=== PATIENT | female | born 1970 | race Hispanic/Latino ===

== ENCOUNTER 2020-07-26 06:37 | Emergency (ER) | payer BC ==
[2020-07-26 07:16] LABS: Absolute Lymphocytes (CBC) 1.8 K/uL (0.7-4.9); Basophils % 0.2 % (0-1.3); Hematocrit 37.6 % (36.0-45.0); Lymphocytes % 20.3 % (15.3-44.8); MPV 10.6 fL (7.6-11.3); RBC Red Blood Cell Count 4.06 M/uL (3.86-4.86)
[2020-07-26 07:23] LABS: BUN Blood Urea Nitrogen 13 mg/dL (7-18); Bicarbonate 29 mmol/L (21-32); Glucose Level 107 mg/dL (74-106); Magnesium 2.1 mg/dL (1.8-2.4); Potassium 3.9 mmol/L (3.5-5.1); Sodium Level 142 mmol/L (136-145); Troponin (Emerg Dept Use Only) < 0.02 ng/mL (0.0-0.045)
--- NOTE | 2020-07-26 07:24 | RAD REPORT ---
EXAM DESCRIPTION: [place] Single View07/26/2020 7:09 am CLINICAL HISTORY: Syncope COMPARISON: 2016 FINDINGS: The lungs appear clear of acute infiltrate. The heart is probably borderline enlarged IMPRESSION: No acute abnormalities displayed
--- NOTE | 2020-07-26 08:16 | ER ---
Nurse's Notes [facility] Name: Berta Raman Age: 49 yrs Sex: Female : 1970 Arrival Date: 07/26/2020 Time: 06:42 Bed 5 Private MD: Diagnosis: Hyperventilation;Muscle spasm Presentation: 07/26 06:46 Chief complaint: EMS states: Pt reports having a syncopal episode while brushing he ea teeth. EMS reports she was clammy, cold and diaphoretic. BGL 128, 20G LAC initiated by EMS. 324mg ASA given per EMS. Coronavirus screen: At this time, the client does not indicate any symptoms associated with coronavirus-19. Ebola Screen: No symptoms or risks identified at this time. Initial Sepsis Screen: Does the patient meet any 2 criteria? No. Patient's initial sepsis screen is negative. Does the patient have a suspected source of infection? No. Patient's initial sepsis screen is negative. Risk Assessment: Do you want to hurt yourself or someone else? Patient reports no desire to harm self or others. Onset of symptoms was July 26, 2020. 06:46 Method Of Arrival: EMS: [facility] ea 06:46 Acuity: ILIA 3 ea Historical: - Allergies: 06:53 No Known Allergies; ea - Home Meds: 06:53 phentermine oral oral [Active]; ea - PSHx: 06:53 Cholecystectomy; Tubal ligation; TUMOR REMOVAL; ea - Immunization history:: Adult Immunizations up to date. - Social history:: Smoking status: Patient denies any tobacco usage or history of. - Family history:: not pertinent. - Hospitalizations: : No recent hospitalization is reported. Screenin:51 Abuse screen: Denies threats or abuse. Nutritional screening: No deficits noted. ea Tuberculosis screening: No symptoms or risk factors identified. Fall Risk None identified. Assessment: 06:54 General: Appears in no apparent distress. Behavior is calm, cooperative, appropriate ea for age. Pain: Denies pain. Neuro: Level of Consciousness is awake, alert, obeys commands, Oriented to person, place, time. Cardiovascular: Patient's skin is warm and dry. Respiratory: Airway is patent Respiratory effort is even, unlabored. Derm: Skin is pink, warm \T\ dry. 08:12 Reassessment: Patient appears in no apparent distress at this time. Patient and/or em family updated on plan of care and expected duration. Pain level reassessed. Patient is alert, oriented x 3, equal unlabored respirations, skin warm/dry/pink. Vital Signs: 06:46 BP 125 / 91; Pulse 63; Resp 18; Temp 97.3; Pulse Ox 98% ; Weight 70.31 kg; Height 5 ft. ea 1 in. (154.94 cm); 06:46 Body Mass Index 29.29 (70.31 kg, 154.94 cm) ea ED Course: 06:42 Patient arrived in ED. mw2 06:49 José Antonio Sandoval MD is Attending Physician. rn 06:51 Triage completed. ea 06:52 Maintain EMS IV. Dressing intact. Good blood return noted. Site clean \T\ dry. Gauge \T\ ea site: 20G LAC. 06:52 Arm band placed on right wrist. Patient placed in an exam room, on a stretcher, on ea dropper tank storage, on pulse oximetry. 06:52 Patient has correct armband on for positive identification. Bed in low position. Call ea light in reach. retention specialist on. Pulse ox on. NIBP on. 07:09 XRAY Chest (1 view) In Process Unspecified. EDMS 07:10 Silas Schaffer, RN is Primary Nurse. em 07:59 Attending Physician role handed off by José Antonio Sandoval MD kdr 07:59 Riley Chopra MD is Attending Physician. kdr 08:56 No provider procedures requiring assistance completed. IV discontinued, intact, em bleeding controlled, No redness/swelling at site. Pressure dressing applied. Administered Medications: No medications were administered Outcome: 08:16 Discharge ordered by . kdr 08:56 Discharged to home ambulatory. em 08:56 Condition: stable 08:56 Discharge instructions given to patient, Instructed on discharge instructions, follow up and referral plans. Demonstrated understanding of instructions, follow-up care. 08:57 Patient left the ED. em Signatures: Dispatcher [employer] EDMS Riley Chopra MD MD [facility] Silas Schaffer, RN RN José Antonio aSndoval MD MD rn Antunez, Elena, RN RN Teetee Scott mw2
--- NOTE | 2020-07-26 08:16 | EDPHYS ---
Physician Documentation [facility] Name: Berta Raman Age: 49 yrs Sex: Female : 1970 Arrival Date: 07/26/2020 Time: 06:42 Bed 5 Private MD: ED Physician Riley Chopra HPI: 07/26 06:51 This 49 yrs old Female presents to ER via EMS with complaints of near syncope. rn 06:51 The patient has experienced near-syncope. Onset: The symptoms/episode began/occurred rn just prior to arrival. Duration: This was a single episode. Context: occurred while the patient was arguing. Associated injury: The patient did not suffer any apparent associated injury. Current symptoms: Currently, the patient is not experiencing any symptoms. The patient has not experienced similar symptoms in the past. The patient has not recently seen a physician. Reports under a lot of stress lately, was arguing with daughter this AM, felt lightheaded, tingling in hands and face, hands started to cramp, then "slowly went to floor". Doesn't think completely passed out. No preceding chest pain or sob. Has not felt ill lately. No cardiac or chronic lung problems. . Historical: - Allergies: 06:53 No Known Allergies; ea - Home Meds: 06:53 phentermine oral oral [Active]; ea - PSHx: 06:53 Cholecystectomy; Tubal ligation; TUMOR REMOVAL; ea - Immunization history:: Adult Immunizations up to date. - Social history:: Smoking status: Patient denies any tobacco usage or history of. - Family history:: not pertinent. - Hospitalizations: : No recent hospitalization is reported. ROS: 06:51 Constitutional: Negative for fever, chills, and weight loss, Eyes: Negative for injury, rn pain, redness, and discharge, Neck: Negative for injury, pain, and swelling, Cardiovascular: Negative for chest pain, and edema, Respiratory: Negative for shortness of breath, cough, wheezing, and pleuritic chest pain, Abdomen/GI: Negative for abdominal pain, nausea, vomiting, diarrhea, and constipation, Back: Negative for injury and pain, : Negative for injury, bleeding, discharge, and swelling, MS/Extremity: Negative for injury and deformity, Skin: Negative for injury, rash, and discoloration, Neuro: Negative for headache, weakness, and seizure. Exam: 06:51 Constitutional: This is a well developed, well nourished patient who is awake, alert, rn and in no acute distress. Head/Face: Normocephalic, atraumatic. Eyes: Pupils equal round and reactive to light, extra-ocular motions intact. Periorbital areas with no swelling, redness, or edema. ENT: MMM Cardiovascular: Regular rate and rhythm. No pulse deficits. Respiratory: No increased work of breathing, no retractions or nasal flaring. Abdomen/GI: soft, non-tender Skin: Warm, dry with normal turgor. Normal color with no rashes, no lesions, and no evidence of cellulitis. MS/ Extremity: Pulses equal, no cyanosis. Neuro: Awake and alert, GCS 15, oriented to person, place, time, and situation. Cranial nerves II-XII grossly intact. Motor strength 5/5 in all extremities. Sensory grossly intact. Cerebellar exam normal. 08:17 ECG was reviewed by the Attending Physician. kdr Vital Signs: 06:46 BP 125 / 91; Pulse 63; Resp 18; Temp 97.3; Pulse Ox 98% ; Weight 70.31 kg; Height 5 ft. ea 1 in. (154.94 cm); 06:46 Body Mass Index 29.29 (70.31 kg, 154.94 cm) ea MDM: 06:49 Patient medically screened. rn 08:18 Data reviewed: vital signs, nurses notes, lab test result(s), EKG, radiologic studies. kdr Counseling: I had a detailed discussion with the patient and/or guardian regarding: the historical points, exam findings, and any diagnostic results supporting the discharge/admit diagnosis, lab results, radiology results, the need for outpatient follow up. 07/26 06:51 Order name: Basic Metabolic Panel; Complete Time: 07:59 rn 07/26 06:51 Order name: CBC with Diff; Complete Time: 07:59 rn 07/26 06:51 Order name: Magnesium; Complete Time: 07:59 rn 07/26 06:51 Order name: Troponin (emerg Dept Use Only); Complete Time: 07:59 rn 07/26 06:51 Order name: EKG; Complete Time: 06:53 rn 07/26 06:51 Order name: XRAY Chest (1 view); Complete Time: 07:59 rn 07/26 06:51 Order name: Cardiac monitoring; Complete Time: 06:58 rn 07/26 06:51 Order name: EKG - Nurse/Tech; Complete Time: :58 rn 07/26 06:51 Order name: IV Saline Lock; Complete Time: :58 rn 07/26 06:51 Order name: Labs collected and sent; Complete Time: :58 rn 07/26 06:51 Order name: O2 Per Protocol; Complete Time: : rn 07/26 06:51 Order name: O2 Sat Monitoring; Complete Time: : rn EC:17 Rate is 64 beats/min. Rhythm is regular, Normal Sinus Rhythm with No ectopy. QRS Arbela kdr is Normal. RI interval is normal. QRS interval is normal. QT interval is normal. Clinical impression: Normal ECG. Administered Medications: No medications were administered Disposition: 07/26/20 08:16 Discharged to Home. Impression: Hyperventilation, Muscle spasm. - Condition is Stable. - Discharge Instructions: Hyperventilation, Muscle Cramps and Spasms, [id number]. - Medication Reconciliation Form, Thank You Letter form. - Follow up: Private Physician; When: 2 - 3 days; Reason: If symptoms return, Further diagnostic work-up, Recheck today's complaints, Continuance of care, Re-evaluation by your physician. - Problem is new. - Symptoms are resolved. Signatures: Dispatcher [employer] Riley Bajwa MD MD kdr Munoz, Edgar RN José Antonio Galo MD MD rn Antunez, Elena, RN RN ea Corrections: (The following items were deleted from the chart) 08:57 08:16 07/26/2020 08:16 Discharged to Home. Impression: Hyperventilation; Muscle spasm. em Condition is Stable. Forms are Medication Reconciliation Form, Thank You Letter, Antibiotic Education, Prescription Opioid Use. Follow up: Private Physician; When: 2 - 3 days; Reason: If symptoms return, Further diagnostic work-up, Recheck today's complaints, Continuance of care, Re-evaluation by your physician. Problem is new. Symptoms are resolved. kdr
[2020-07-26 09:01] VITALS: BP 125/91; TEMP 97.3; O2SAT 98
== END 2020-07-26 08:57 | disposition home or self-care (01) ==
LOC: ER 06:37
DX: R06.4 Hyperventilation (principal); M62.838 Other muscle spasm
CPT/HCPCS: 36415; 71045; 80048; 83735; 84484; 85025; 93005; 99284

== ENCOUNTER 2022-10-02 09:26 | Emergency (ER) | payer BC, OTHER ==
--- OUTSIDE RECORDS SUMMARY | 2022-10-02 09:30 | XMS REPORT | Continuity of Care Document ---
:1970 Author Organization [facility] t Address [address] [place] [address] [address] [place] [address] Care Team Providers Name Role Phone PCP, PATIENT DOES NOT HAVE A Primary Care Physician Unavaila WIN Burrows Attending Clinician Unavailable WIN PRINCE Attending Clinician Unavailable DORA CHA Attending Clinician Unavailable Dora Cha MD Attending Clinician Doctor Unassigned, [place] Attending Clinician Unavailable Payers Payer Name Policy Type Policy Number Effective Date Expiration Date S ource TSHBP 90 DEGREES [id number] 2021 00:00:00 Problems This patient has no known problems. Allergies, Adverse Reactions, Alerts Allergy Allergy Status Severity Reaction(s) Onset Inactive Treating Comm ents Source Name Type Date Date Clinician NO KNOWN Drug Active Univers ALLERGIE Class ity of S [facility] Social History Social Habit Start Date Stop Date Quantity Comments Source Tobacco use and 2022-09-13 2022-09-13 Smokeless tobacco Un iversity of exposure 00:00:00 00:00:00 non-user [facility] Alcohol intake 2022-09-13 2022-09-13 Lifetime University of 00:00:00 00:00:00 non-drinker [facility] [place] Sex Ass[birth year] At [birth year] Universit y of 00:00:00 00:00:00 [facility] Smoking Status Start Date Stop Date Source [facility] Never [facility] tobacco [facility] Medications This patient has no known medications. Immunizations Ordered Filled Immunization Date Status Comments Sourc e Immunization Name Name SARS-COV-2 COVID-19 2020-07-06 Completed Unive rsity of PFIZER VACCINE 00:00:00 [facility] SARS-COV-2 COVID-19 2020-07-06 Completed Unive rsity of PFIZER VACCINE 00:00:00 [facility] SARS-COV-2 COVID-19 2020-07-06 Completed Unive rsity of PFIZER VACCINE 00:00:00 [facility] SARS-COV-2 COVID-19 2020-06-15 Completed Unive rsity of PFIZER VACCINE 00:00:00 [facility] SARS-COV-2 COVID-19 2020-06-15 Completed Unive rsity of PFIZER VACCINE 00:00:00 [facility] SARS-COV-2 COVID-19 2020-06-15 Completed Unive rsity of PFIZER VACCINE 00:00:00 [facility] Vital Signs Vital Name Observation Time Observation Value Comments Source Systolic blood 2022-09-13 13:21:00 130 mm[Hg] Univer sity [facility] Diastolic blood 2022-09-13 13:21:00 79 mm[Hg] Unive rsity of [facility] Heart rate 2022-09-13 13:21:00 54 /min [facility] Body height 2022-09-13 13:21:00 154.9 cm [facility] Body weight 2022-09-13 13:21:00 77.52 kg [facility] BMI 2022-09-13 13:21:00 32.29 kg/m2 [facility] Procedures Procedure Date / Time Performed Performing Clinician Sourc e ASSIGNMENT OF BENEFITS 2022-09-13 12:59:03 Doctor Unassigned, No [facility] POCT URINALYSIS W/O 2022-09-13 00:00:00 [facility] Encounters Start End Encounter Admission Attending Care Care Encounter Source Date/Time Date/Time Type Type Clinicians Facility Department ID 2023-09-19 2023-09-19 [address] PRINCE [facility] [id number] [facility] 15:30:00 15:30:00 WIN PRINCE ity of [facility] 2022-09-13 2022-09-13 Outpatient R DORA CHA [facility] [id number] Univers 08:00:00 08:46:20 ity of [facility] 2022-09-13 2022-09-13 Office Win Prince [facility] TONI [id number] Univers 08:00:00 08:46:20 Visit ChaDora Pillo FAM [id number] ity of WOMENS [id number] [facility] [id number] [facility] 134 Branch 2022-09-13 2022-09-13 Orders Doctor TRACY [id number] Univers 00:00:00 00:00:00 Only Unassigned, FANNIE [id number] ity of [place] [facility] [id number] Santy [id number] [facility] 009 Branch Results Test Description Test Time Test Comments Results Result Comments Source POCT URINALYSIS W/O SPECIFIC GRAVITY 2022-09-13 13:25:00 Test Item Value Reference Range Interpretation Comme nts POCT PH U (test code = 3254) 6 mg/dl 5-8 POCT U LEUK EST (test code = 3263) Negative Negative - Negative POCT U NIT (test code = 3262) negative Negative - Negative POCT U PROT (test code = 3259) Negative Negative - Negative POCT U GLU (test code = 3256) Normal Negative - Negative POCT U KETONE (test code = 3258) Negative Negative - Negative POCT U BLD (test code = 3257) Negative Negative - Negative [facility]/O SPECIFIC [id number] 13:25:00 Test Item Value Reference Range Interpretation Comments POCT PH U (test code = 3254) 6 mg/dl 5-8 POCT U LEUK EST (test code = Negative Negative - Negative 3263) POCT U NIT (test code = 3262) negative Negative - Negative POCT U PROT (test code = 3259) Negative Negative - Negative POCT U GLU (test code = 3256) Normal Negative - Negative POCT U KETONE (test code = 3258) Negative Negative - Negative POCT U BLD (test code = 3257) Negative Negative - Negative [facility]
[2022-10-02 10:05] LABS: Absolute Lymphocytes (CBC) 1.9 K/uL (0.7-4.9); Hematocrit 41.8 % (36.0-45.0); Lymphocytes % 32.9 % (15.3-44.8); MCV 90.8 fL (80-100); MPV 9.3 fL (7.6-11.3)
[2022-10-02 10:30] LABS: Albumin 3.6 g/dL (3.4-5.0); Bilirubin Total 0.2 mg/dL (0.2-1.0); Potassium 3.4 mEq/L (3.5-5.1); Protein, Total 7.9 g/dL (6.4-8.2)
[2022-10-02 11:11] LABS: Specific Gravity > 1.030 (1.005-1.030); Urine Bacteria None Seen /HPF (<20); Urine Bilirubin NEGATIVE (Negative); Urine Blood 1+ (Negative); Urine Clarity Clear (Clear); Urine Color Light-Yellow (Yellow); Urine Glucose NEGATIVE (Negative); Urine Mucus Slight /HPF (None Seen); Urine Protein 1+ (Negative); Urine Urobilinogen Normal (Normal)
--- NOTE | 2022-10-02 11:11 | RAD REPORT ---
EXAM DESCRIPTION: CT - Abdomen Pelvis W Contrast - 10/02/2022 10:42 am CLINICAL HISTORY: ABD PAIN COMPARISON: No comparisons TECHNIQUE: Thin cut axial CT imaging of the abdomen and pelvis was performed following intravenous a dministration of 70 mL Isovue 300. Multiplanar reformats were generated and reviewed. All CT scans are performed using dose optimization technique as appropriate and may include automated exposure control or mA/KV adjustment according to patient size. FINDINGS: No suspicious findings in the lung bases. The liver, spleen, and pancreas show no suspicious findings. Status post cholecystectomy. No evidence of intra or extrahepatic biliary ductal dilation. Symmetric renal function is seen with no hydronephrosis or suspicious renal mass. No dilated bowel loops or bowel wall thickening, although there is a long segment of apparent wall th ickening along the cecum and ascending colon, could be related to nondistention and motion artifact. Appendix is visualized and is unremarkable. No free air, fluid collections, or inflammatory stranding . Mild volume free pelvic fluid, likely physiologic. No hernia, mass or bulky lymphadenopathy. The ur inary bladder is nondistended limiting evaluation. . No suspicious bony findings. IMPRESSION: Long segment apparent wall thickening along the cecum and ascending colon. Evaluation is limited by nondistention and motion artifact. This would suggest segmental infectious or inflammator y colitis.
--- NOTE | 2022-10-02 11:23 | ER ---
Nurse's Notes [facility] Name: Berta Raman Age: 51 yrs Sex: Female : 1970 Arrival Date: 10/02/2022 Time: 09:26 Bed 19 Private MD: Diagnosis: Colitis Presentation: 10/02 09:35 Chief complaint: Patient states: ABD bloating, pain, N/D, weakness, fatigue X 4 days. ld1 Coronavirus screen: At this time, the client does not indicate any symptoms associated with coronavirus-19. Ebola Screen: No symptoms or risks identified at this time. Initial Sepsis Screen: Does the patient meet any 2 criteria? No. Patient's initial sepsis screen is negative. Does the patient have a suspected source of infection? No. Patient's initial sepsis screen is negative. Risk Assessment: Do you want to hurt yourself or someone else? Patient reports no desire to harm self or others. Onset of symptoms was October 02, 2022 at 09:36. 09:35 Method Of Arrival: Ambulatory ld1 09:35 Acuity: ILIA 3 ld1 Triage Assessment: 09:36 General: Appears in no apparent distress. comfortable, Behavior is calm, cooperative, ld1 appropriate for age. Pain: Complains of pain in abdomen Pain does not radiate. Pain currently is 5 out of 10 on a pain scale. Quality of pain is described as throbbing. EENT: No signs and/or symptoms were reported regarding the EENT system. Neuro: Level of Consciousness is awake, alert, obeys commands, Oriented to person, place, time, situation. Cardiovascular: Capillary refill < 3 seconds Patient's skin is warm and dry. Respiratory: Airway is patent Respiratory effort is even, unlabored. GI: Abdomen is round non-distended, Reports lower abdominal pain, bloating, diarrhea, nausea. : No signs and/or symptoms were reported regarding the genitourinary system. Derm: No signs and/or symptoms reported regarding the dermatologic system. Musculoskeletal: No signs and/or symptoms reported regarding the musculoskeletal system. 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 - Social history:: Smoking status: Patient denies any tobacco usage or history of. Patient/guardian denies using alcohol. Screenin:22 [facility] ED Fall Risk Assessment (Adult) History of falling in the last 3 months, db including since admission No falls in past 3 months (0 pts) Confusion or Disorientation No (0 pts) Intoxicated or Sedated No (0 pts) Impaired Gait No (0 pts) Mobility Assist Device Used No (0 pt) Altered Elimination No (0 pt) Score/Fall Risk Level 0 - 2 = Low Risk Oriented to surroundings, Maintained a safe environment. Abuse screen: Denies threats or abuse. Denies injuries from another. Nutritional screening: No deficits noted. Tuberculosis screening: No symptoms or risk factors identified. Assessment: 10:00 Reassessment: Patient appears in no apparent distress at this time. Patient and/or db family updated on plan of care and expected duration. Pain level reassessed. Patient is alert, oriented x 3, equal unlabored respirations, skin warm/dry/pink. General: Appears in no apparent distress. comfortable, Behavior is calm, cooperative. Pain: Complains of pain in abdomen. Neuro: Level of Consciousness is awake, alert, obeys commands, Oriented to person, place, time, situation. Respiratory: Airway is patent Respiratory effort is even, unlabored, Respiratory pattern is regular, symmetrical. GI: Abdomen is flat, non-distended, Bowel sounds present X 4 quads. Abd is soft Abdomen is tender to palpation X 4 quads. generalized. 10:45 Reassessment: patient in CT. db 11:30 Reassessment: Patient appears in no apparent distress at this time. Patient and/or db family updated on plan of care and expected duration. Pain level reassessed. Patient is alert, oriented x 3, equal unlabored respirations, skin warm/dry/pink. General: Appears in no apparent distress. comfortable, Behavior is calm, cooperative. Neuro: Level of Consciousness is awake, alert, obeys commands, Oriented to person, place, time, situation. Vital Signs: 09:35 BP 135 / 67; Pulse 67; Resp 18; Temp 98.3(O); Pulse Ox 99% on R/A; Weight 74.84 kg; ld1 Height 5 ft. 1 in. ; Pain 5/10; 10:15 BP 127 / 76; Pulse 61; Resp 16; Pulse Ox 99% on R/A; db 11:30 BP 131 / 68; Pulse 58; Resp 16; Pulse Ox 100% on R/A; db 09:35 Body Mass Index 31.18 (74.84 kg, 154.94 cm) ld1 09:35 Pain Scale: Adult ld1 ED Course: 09:28 Patient arrived in ED. am2 09:32 [facility] kb 09:32 Antonio Hooper DO is Attending Physician. kb 09:36 Triage completed. ld1 09:36 Arm band placed on right wrist. ld1 09:39 Maliha Vivas, RN is Primary Nurse. db 10:00 Inserted saline lock: 20 gauge in left antecubital area, using aseptic technique. Blood db collected. 10:22 No provider procedures requiring assistance completed. db 10:43 CT Abd/Pelvis - IV Contrast Only In Process Unspecified. EDMS 11:30 Patient has correct armband on for positive identification. Placed in gown. Bed in low db position. Call light in reach. Side rails up X 1. Pulse ox on. NIBP on. 12:20 IV discontinued, intact, bleeding controlled, No redness/swelling at site. db Administered Medications: No medications were administered Medication: 11:30 VIS not applicable for this client. db Outcome: 11:23 Discharge ordered by . kb 12:20 Discharged to home ambulatory, with family. db 12:20 Condition: stable 12:20 Discharge instructions given to patient, Instructed on discharge instructions, follow up and referral plans. Prescriptions given X 2. 12:21 Patient left the ED. db Signatures: Dispatcher [employer] EDMS Meena Funk FNP-C FNP-Shanika Sanchez am2 Zulma Hooper RN RN ld1 Maliha Vivas, GABI RN db
--- NOTE | 2022-10-02 11:23 | EDPHYS ---
Physician Documentation [facility] Name: Berta Raman Age: 51 yrs Sex: Female : 1970 Arrival Date: 10/02/2022 Time: 09:26 Bed 19 Private MD: ED Physician Antonio Hooper HPI: 10/02 12:25 This 51 yrs old Female presents to ER via Ambulatory with complaints of kb Nausea/Vomiting/Diarrhea, Abdominal Distention, Abdominal Pain, Low Back Pain. 12:25 The patient presents with abdominal pain that is diffuse. Onset: The symptoms/episode kb began/occurred 4 day(s) ago. The symptoms do not radiate. Associated signs and symptoms: Pertinent positives: nausea, fatigue. The symptoms are described as constant. Modifying factors: The symptoms are alleviated by nothing, the symptoms are aggravated by nothing. Severity of pain: At its worst the pain was moderate in the emergency department the pain is unchanged. The patient has not experienced similar symptoms in the past. The patient has been recently seen by a physician:. Pt reports she went out of the country on Friday, started having abd bloating and malaise on Friday. Was seen and given 4 different injections (known medication) but symptoms have not improved. 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 - Social history:: Smoking status: Patient denies any tobacco usage or history of. Patient/guardian denies using alcohol. ROS: 12:16 Constitutional: Negative for fever, chills, and weight loss. kb 12:16 Abdomen/GI: Positive for abdominal pain, Negative for nausea, vomiting, and diarrhea. 12:16 All other systems are negative. Exam: 12:22 Constitutional: This is a well developed, well nourished patient who is awake, alert, kb and in no acute distress. Head/Face: Normocephalic, atraumatic. ENT: Moist Mucous membranes Cardiovascular: Regular rate and rhythm with a normal S1 and S2. No gallops, murmurs, or rubs. No pulse deficits. Respiratory: Respirations even and unlabored. No increased work of breathing. Talking in full sentences Skin: Warm, dry with normal turgor. Normal color. MS/ Extremity: Pulses equal, no cyanosis. Neurovascular intact. Full, normal range of motion. Neuro: Awake and alert, GCS 15, oriented to person, place, time, and situation. Moves all extremities. Normal gait. 12:22 Abdomen/GI: Inspection: abdomen appears normal, Bowel sounds: normal, Palpation: soft, in all quadrants, moderate abdominal tenderness, in the left lower quadrant. Vital Signs: 09:35 BP 135 / 67; Pulse 67; Resp 18; Temp 98.3(O); Pulse Ox 99% on R/A; Weight 74.84 kg; ld1 Height 5 ft. 1 in. ; Pain 5/10; 10:15 BP 127 / 76; Pulse 61; Resp 16; Pulse Ox 99% on R/A; db 11:30 BP 131 / 68; Pulse 58; Resp 16; Pulse Ox 100% on R/A; db 09:35 Body Mass Index 31.18 (74.84 kg, 154.94 cm) ld1 09:35 Pain Scale: Adult ld1 MDM: 09:32 Patient medically screened. kb 12:22 Differential diagnosis: diverticulitis, gastritis, non-specific abd pain, colitis. Data kb reviewed: vital signs, nurses notes. Consideration of Admission/Observation Escalation of care including admission/observation considered. admission considered, but pt is nontoxic in appearance, labs wnl, afebrile and in no apparent distress. Counseling: I had a detailed discussion with the patient and/or guardian regarding: the historical points, exam findings, and any diagnostic results supporting the discharge/admit diagnosis, lab results, radiology results, the need for outpatient follow up, a family practitioner, to return to the emergency department if symptoms worsen or persist or if there are any questions or concerns that arise at home. 10/02 09:39 Order name: CBC with Diff; Complete Time: 10:21 kb 10/02 09:39 Order name: CMP; Complete Time: 10:33 kb 10/02 09:39 Order name: Lipase; Complete Time: 10:33 kb 10/02 09:39 Order name: Urinalysis w/ reflexes; Complete Time: 11:13 kb 10/02 09:39 Order name: CT Abd/Pelvis - IV Contrast Only; Complete Time: 11:13 kb 10/02 09:39 Order name: IV Saline Lock; Complete Time: 10:21 kb 10/02 09:39 Order name: Labs collected and sent; Complete Time: 10:21 kb Administered Medications: No medications were administered Disposition: 14:16 Co-signature as Attending Physician, Antonio Hooper DO I was immediately available on-site ms3 in the Emergency Department for consultation in the care of the patient. Disposition Summary: 10/02/22 11:23 Discharge Ordered Location: Home kb Condition: Stable kb Diagnosis - Colitis kb Followup: kb - With: Emergency Department - When: As needed - Reason: Worsening of condition Followup: kb - With: Private Physician - When: 2 - 3 days - Reason: Recheck today's complaints, Continuance of care, Re-evaluation by your physician Discharge Instructions: - Discharge Summary Sheet kb - Colitis kb Forms: - Medication Reconciliation Form kb - Thank You Letter kb - Antibiotic Education kb - Prescription Opioid Use kb - [email or web address] kb Prescriptions: - Cipro 500 mg Oral Tablet - take 1 tablet by ORAL route every 12 hours for 10 days; 20 tablet; Refills: 0, kb Product Selection Permitted - Flagyl 500 mg Oral Tablet - take 1 tablet by ORAL route every 8 hours for 10 days; 30 tablet; Refills: 0, kb Product Selection Permitted Signatures: Dispatcher [employer] Meena Pink, Antonio Henry DO DO ms3 Zulma Hooper RN RN ld1
== END 2022-10-02 12:21 | disposition home or self-care (01) ==
LOC: ER 09:26
DX: K52.9 Noninfective gastroenteritis and colitis, unspecified (principal); R53.83 Other fatigue
CPT/HCPCS: 85025; 81001; 36415; 83690; 80053; 74177; 99284; Q9967

== ENCOUNTER 2023-02-01 19:09 | Emergency (ER) | payer OTHER ==
--- OUTSIDE RECORDS SUMMARY | 2023-02-01 19:16 | XMS REPORT | Continuity of Care Document ---
:1970 Author Organization [facility] t Address [address] [place] [address] [place] [id number] Care Team Providers Name Role Phone PCP, PATIENT DOES NOT HAVE A Primary Care Physician Unavaila WIN Burrows Attending Clinician Unavailable WIN PRINCE Attending Clinician Unavailable DORA CHA Attending Clinician Unavailable Dora Cha MD Attending Clinician Doctor Unassigned, [place] Attending Clinician Unavailable Payers Payer Name Policy Type Policy Number Effective Date Expiration Date S ource TSHBP 90 DEGREES [id number] 2021 00:00:00 Problems This patient has no known problems. Allergies, Adverse Reactions, Alerts Allergy Allergy Status Severity Reaction(s) Onset Inactive Treating Comm ents Source Name Type Date Date Clinician NO KNOWN Drug Active Univers ALLERGIE Class ity of S [facility] Social History Social Habit Start Date Stop Date Quantity Comments Source Tobacco use and 2022-09-13 2022-09-13 Smokeless tobacco Un iversity of exposure 00:00:00 00:00:00 non-user [facility] Alcohol intake 2022-09-13 2022-09-13 Lifetime University of 00:00:00 00:00:00 non-drinker [facility] [place] Sex Assigned At [birth year] Universit y of 00:00:00 00:00:00 [facility] Smoking Status Start Date Stop Date Source Tobacco [facility] Never smoked tobacco [facility] Medications This patient has no known medications. Vital Signs Vital Name Observation Time Observation Value Comments Source Systolic blood 2022-09-13 13:21:00 130 mm[Hg] Univer sity [facility] Diastolic blood 2022-09-13 13:21:00 79 [facility] 2022-09-13 13:21:00 54 /min [facility] Body height 2022-09-13 13:21:00 154.9 cm [facility] Body weight 2022-09-13 13:21:00 77.52 kg [facility] BMI 2022-09-13 13:21:00 32.29 kg/m2 [facility] Procedures Procedure Date / Time Performed Performing Clinician Sour e ASSIGNMENT OF BENEFITS 2022-09-13 12:59:03 Doctor Unassigned, No [facility] Name [facility] POCT URINALYSIS W/O 2022-09-13 00:00:00 Win Prince Un [facility] Encounters Start End Encounter Admission Attending Care Care Encounter Source Date/Time Date/Time Type Type Clinicians Facility Department ID 2023-09-23 2023-09-23 Outpatient R KALLI-RAMIREZ [facility] [id number] [facility] 16:30:00 16:30:00 MAHAN-GUZMÁN, WIN [facility] 2023-09-19 2023-09-19 Outpatient R KALLI-RAMIREZ [facility] [id number] [facility] 15:30:00 15:30:00 [facility]22-09-[facility] 2022-09-13 Outpatient R DORA CHA [facility] [id number] [facility] 08:00:00 [facility]46[facility] 2022-09-13 2022-09-13 Office Katerina Princesol [facility] 1. [id number] [facility] 08:00:00 08:46:20 Visit Dora Cha [id number] ity of WOMEN'S [id number] [facility] [phone] [place] [address] Branch 2022-09-13 2022-09-13 Orders Doctor TRACY [id number] Univers 00:00:00 00:00:00 Only Unassigned, FANNIE [id number] ity of [place] [facility] [id number] Santy as [id number] [facility] 009 Branch Results Test Description Test Time [...] code = 3257) Negative Negative - Negative [facility] W/O SPECIFIC [id number] 13:25:00 Test Item Value Reference Range Interpretation [...] code = 3257) Negative Negative - Negative [facility]
--- NOTE | 2023-02-01 21:07 | RAD REPORT ---
EXAM DESCRIPTION: RAD - Ankle Right 3 View - 02/01/2023 8:51 pm CLINICAL HISTORY: R ankle pain COMPARISON: No comparisons FINDINGS/IMPRESSION: No acute fracture. No malalignment. Dorsal and plantar aspect calcaneal spurs.
--- NOTE | 2023-02-01 21:08 | RAD REPORT ---
EXAM DESCRIPTION: RAD - Foot Right 3 View - 02/01/2023 8:51 pm CLINICAL HISTORY: R foot pain COMPARISON: No comparisons FINDINGS/IMPRESSION: No acute fracture. No malalignment. Dorsal and plantar aspect calcaneal spurs.
--- NOTE | 2023-02-01 22:07 | ER ---
Nurse's Notes [facility] Name: Berta Raman Age: 52 yrs Sex: Female : 1970 Arrival Date: 02/01/2023 Time: 19:09 Bed DIS3 Private MD: Diagnosis: Other sprain of right foot;Right foot sprain, right foot pain Presentation: 02/01 20:05 Chief complaint: Patient states: Painting and fell off ladder down 3 steps. vc1 20:05 Coronavirus screen: Vaccine status: Patient reports receiving the 2nd dose of the covid vc1 vaccine. Client denies travel out of the [place] in the last 14 days. At this time, the client does not indicate any symptoms associated with coronavirus-19. Ebola Screen: Patient negative for fever greater than or equal to 101.5 degrees Fahrenheit, and additional compatible Ebola Virus Disease symptoms Patient denies exposure to infectious person. Patient denies travel to an Ebola-affected area in the 21 days before illness onset. No symptoms or risks identified at this time. Initial Sepsis Screen: Does the patient meet any 2 criteria? No. Patient's initial sepsis screen is negative. Does the patient have a suspected source of infection? No. Patient's initial sepsis screen is negative. Risk Assessment: Do you want to hurt yourself or someone else? Patient reports no desire to harm self or others. Onset of symptoms was February 01, 2023. 20:05 Method Of Arrival: Wheelchair vc1 20:05 Acuity: ILIA 4 vc1 Triage Assessment: 20:05 General: Appears in no apparent distress. uncomfortable, Behavior is calm, cooperative, vc1 appropriate for age. Pain: Complains of pain in right foot. 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 - Social history:: Smoking status: Patient denies any tobacco usage or history of. - Family history:: not pertinent. Screenin:05 [facility] Fall Risk Assessment (Adult) History of falling in the last 3 months, vc1 including since admission Yes- physiologic fall (2 pts) Confusion or Disorientation No (0 pts) Intoxicated or Sedated No (0 pts) Impaired Gait No (0 pts) Mobility Assist Device Used No (0 pt) Altered Elimination No (0 pt). Abuse screen: Denies threats or abuse. Nutritional screening: No deficits noted. Tuberculosis screening: No symptoms or risk factors identified. Assessment: 22:11 General: see triage assessment. lg3 Vital Signs: 20:05 BP 114 / 50; Pulse 83; Resp 16; Temp 98.3; Pulse Ox 100% ; Weight 68.04 kg; Height 5 vc1 ft. 1 in. ; Pain 6/10; 20:05 Body Mass Index 28.34 (68.04 kg, 154.94 cm) vc1 20:05 Pain Scale: Adult vc1 ED Course: 19:12 Patient arrived in ED. rg4 19:40 Maciej Vizcaino MD is Attending Physician. sp4 20:53 Foot Right 3 View XRAY In Process Unspecified. EDMS 20:53 Ankle Right 3 View XRAY In Process Unspecified. EDMS 21:44 Triage completed. vc1 21:45 Arm band placed on left wrist. vc1 22:11 No provider procedures requiring assistance completed. Patient did not have IV access lg3 during this emergency room visit. 22:12 Patient has correct armband on for positive identification. lg3 Administered Medications: 21:56 Drug: Promethazine PO 25 mg PO once Route: PO; lg3 22:11 Follow up: Response: No adverse reaction; Marked relief of symptoms lg3 21:56 Drug: Ibuprofen PO 800 mg PO once Route: PO; lg3 22:11 Follow up: Response: No adverse reaction; Marked relief of symptoms lg3 21:57 Drug: [place] PO 10 mg-325 mg 1 tabs PO once Route: PO; lg3 22:11 Follow up: Response: No adverse reaction; Marked relief of symptoms lg3 21:57 Drug: Cyclobenzaprine PO 10 mg PO once Route: PO; lg3 22:11 Follow up: Response: No adverse reaction; Marked relief of symptoms lg3 Medication: 20:05 VIS not applicable for this client. vc1 Outcome: 22:07 Discharge ordered by . sp4 22:11 Discharged to home via wheelchair, with crutches, with significant other, lg3 22:11 Condition: stable 22:11 Discharge instructions given to patient, Instructed on discharge instructions, follow up and referral plans. crutch walking, Demonstrated understanding of instructions, follow-up care, medications, crutch walking, Prescriptions given X 1, 22:12 Patient left the ED. lg3 Signatures: Dispatcher [employer] EDMS Karla Nolasco rg4 Pippa Thomas RN RN lg3 Radha Chavez RN RN vc1 Maciej Vizcaino MD MD sp4
--- NOTE | 2023-02-01 22:07 | EDPHYS ---
Physician Documentation [facility] Name: Berta Raman Age: 52 yrs Sex: Female : 1970 Arrival Date: 02/01/2023 Time: 19:09 Bed DIS3 Private MD: ED Physician Maciej Vizcaino HPI: 02/01 19:40 This 52 yrs old Female presents to ER via Unassigned with complaints of Foot sp4 Pain. 22:02 Patient states that today she fell off the ladder while she was painting. This caused sp4 right foot pain and swelling dorsal proximal foot area. There is no discoloration. No problem in the ankle and lower leg. . 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 - Social history:: Smoking status: Patient denies any tobacco usage or history of. - Family history:: not pertinent. ROS: 22:02 Constitutional: Negative for fever, chills, and weight loss, MS/Extremity: Positive sp4 right foot injury and pain 22:02 All other systems are negative, Exam: 22:02 Constitutional: This is a well developed, well nourished patient who is awake, alert, sp4 and in no acute distress. Head/Face: Normocephalic, atraumatic. Eyes: Pupils equal round and reactive to light, extra-ocular motions intact. Lids and lashes normal. Conjunctiva and sclera are not injected. Cornea within normal limits. Periorbital areas with no swelling, redness, or edema. ENT: Nares patent. No nasal discharge, no septal abnormalities noted. Tympanic membranes are normal and external auditory canals are clear. Oropharynx with no redness, swelling, or masses, exudates, or evidence of obstruction, uvula midline. Mucous membranes moist. Neck: Trachea midline, no thyromegaly or masses palpated, and no cervical lymphadenopathy. Supple, full range of motion without nuchal rigidity, or vertebral point tenderness. Chest/axilla: Normal chest wall appearance and motion. Nontender with no deformity. No lesions are appreciated. Cardiovascular: Regular rate and rhythm with a normal S1 and S2. No gallops, murmurs, or rubs. Normal PMI, no JVD. No pulse deficits. Respiratory: Lungs have equal breath sounds bilaterally, clear to auscultation and percussion. No rales, rhonchi or wheezes noted. No increased work of breathing, no retractions or nasal flaring. Abdomen/GI: Soft, non-tender, with normal bowel sounds. No distension or tympany. No guarding or rebound. No evidence of tenderness throughout. Back: No spinal tenderness. No costovertebral tenderness. Skin: Warm, dry with normal turgor. Normal color with no rashes, no lesions, and no evidence of cellulitis. MS/ Extremity: Pulses equal, no cyanosis. Neurovascular intact. Full, normal range of motion. Right dorsal foot tenderness without discoloration or deformity. Mild right foot swelling. Pain with ambulation. Neuro: Awake and alert, GCS 15, oriented to person, place, time, and situation. Cranial nerves II-XII grossly intact. Motor strength 5/5 in all extremities. Sensory grossly intact. Psych: Awake, alert, with orientation to person, place and time. Behavior, mood, and affect are within normal limits Vital Signs: 20:05 BP 114 / 50; Pulse 83; Resp 16; Temp 98.3; Pulse Ox 100% ; Weight 68.04 kg; Height 5 vc1 ft. 1 in. ; Pain 6/10; 20:05 Body Mass Index 28.34 (68.04 kg, 154.94 cm) vc1 20:05 Pain Scale: Adult vc1 Procedures: 22:02 Splinting: Splint applied to lateral aspect of right calf, right ankle, lateral aspect sp4 of right foot, right calf, right Achilles and right heel using Ortho 3D boot, applied by myself. Examined by me, post splint application: neurovascular intact, 2+ distal pulses palpable, brisk capillary refill noted, Patient tolerated well, Crutches provided and crutch training was provided. MDM: 19:51 Patient medically screened. sp4 22:02 Differential diagnosis: fracture, sprain, foreign body, arthritis, gout, cellulitis. sp4 Data reviewed: vital signs, nurses notes, radiologic studies, plain films. Consideration of Admission/Observation Escalation of care including admission/observation considered. ED course: There is right foot tenderness without fracture, x-rays reveal no fracture or dislocation. Patient advised to wear right Ortho boot for 2 weeks with crutches and then another 2 weeks without crutches. If the pain is not improving in the next 30 days patient advised to see primary care physician for repeat x-rays in the office. Otherwise stable for discharge home. . 02/01 19:51 Order name: Foot Right 3 View XRAY; Complete Time: 21:54 sp4 02/01 19:51 Order name: Ankle Right 3 View XRAY; Complete Time: 21:54 sp4 02/01 19:51 Order name: Crutches; Complete Time: 22:11 sp4 Administered Medications: 21:56 Drug: Promethazine PO 25 mg PO once Route: PO; lg3 22:11 Follow up: Response: No adverse reaction; Marked relief of symptoms lg3 21:56 Drug: Ibuprofen PO 800 mg PO once Route: PO; lg3 22:11 Follow up: Response: No adverse reaction; Marked relief of symptoms lg3 21:57 Drug: [place] PO 10 mg-325 mg 1 tabs PO once Route: PO; lg3 22:11 Follow up: Response: No adverse reaction; Marked relief of symptoms lg3 21:57 Drug: Cyclobenzaprine PO 10 mg PO once Route: PO; lg3 22:11 Follow up: Response: No adverse reaction; Marked relief of symptoms lg3 Disposition Summary: 02/01/23 22:07 Discharge Ordered Problem: new sp4 Symptoms: have improved sp4 Condition: Stable sp4 Diagnosis - Other sprain of right foot sp4 - Right foot sprain, right foot pain sp4 Followup: sp4 - With: Private Physician - When: 10 - 14 days - Reason: Recheck today's complaints Discharge Instructions: - Discharge Summary Sheet sp4 - Foot Sprain sp4 Forms: - Patient Portal Instructions sp4 Prescriptions: - Tramadol 50 mg Oral tablet - take 1 tablet ORAL route every 8 hours as needed; 20 tablet; Refills: 0, sp4 Product Selection Permitted Signatures: Dispatcher [employer] Pippa Emerson RN RN lg3 Radha Chavez RN RN vc1 Potepalov, Maciej, MD MD sp4
[2023-02-01] MEDS ORDERED: CYCLOBENZAPRINE 10 MG TAB ONE (22:08)
[2023-02-01] MEDS ORDERED: HYDROCODONE/APAP 10/325 TAB ONE (22:08)
[2023-02-01] MEDS ORDERED: PROMETHAZINE 25 MG TABLET ONE (22:08)
[2023-02-01] MEDS ORDERED: IBUPROFEN 400 MG TAB ONE (22:09)
[2023-02-01 22:26] VITALS: BP 114/50; TEMP 98.3; O2SAT 100
== END 2023-02-01 22:12 | disposition home or self-care (01) ==
LOC: ER 19:09
DX: S93.691A Other sprain of right foot, initial encounter (principal)
CPT/HCPCS: 73630; 73610; 99283; Q0169

== ENCOUNTER 2024-03-19 13:41 | Emergency (ER) | payer OTHER ==
--- OUTSIDE RECORDS SUMMARY | 2024-03-19 13:44 | XMS REPORT | Continuity of Care Document ---
Author Name Unknown Address [address] [facility] [address] [place] [address] [facility] Address [address] [facility] [address] [place] [address] Care Team Providers Care Pr Intern Name Role Phone Pcp, Patient Does Not Have A Primary Care Physic diego WIN PRINCE Attending Clinician WIN Block Attending Clinician Win Block MD Attending Clinician [phone] DORA CHA Attending Clinician Unavailable Dora Cha MD Attending Clinician [phone] Doctor Unassigned, [place] Attending Clinician U navailable Payers Payer Name Policy Type Policy Number Effective Date Expirati on Date Source TSHBP 90 DEGREE AND BENEFITS [id number] 2021 00:00:00 Allergies, Adverse Reactions, Alerts Allergy Name Allergy Type Status Severity Reaction(s) Onset Date Inactive Date Treating Clinician Comments Source NO KNOWN ALLERGIE S Drug Class Active [facility] Social History Social Habit Start Date Stop Date Quantity Comments Source [facility] Alcoholic beverage intake 2024-03-08 00:00:00 2024-03-08 00:00:00 Current drinker of alcohol (finding) [facility] History of Social function 2023-09-30 00:00:00 2023-09-30 00:00:00 [facility] Tobacco use and exposure 2022-09-13 00:00:00 2022-09-13 00:00:00 Smokeless tobacco non-user [facility] Alcohol intake 2022-09-13 00:00:00 2022-09-13 00:00:00 Lifetime non-drinker (finding) [facility] Sex assigned at 1970 00:00:00 1970 00:00:00 [facility] Smoking Status Start Date Stop Date Source Tobacco smoking consumption unknown [facility] Never smoked tobacco [facility] Medications Ordered Medication Name Filled Medication Name Start Date Stop Date Current Medication? Ordering Clinician Indication Dosage Frequency Signature (SIG) Comments Components Source estradioL 0.01 % (0.1 mg/gram) vaginal cream 10-01 00:00: 00 Yes [id number] 1g Insert 1 g into vagina 2 (two) times per week. [facility] Immunizations Ordered Immunization Name Filled Immunization Name Date Status Comments Source SARS-COV-2 COVID-19 PFIZER VACCINE 2020-07-06 00:00:00 Completed [facility] SARS-COV-2 COVID-19 PFIZER VACCINE 2020-07-06 00:00:00 Completed [facility] SARS-COV-2 COVID-19 PFIZER VACCINE 2020-07-06 00:00:00 Completed [facility] SARS-COV-2 COVID-19 PFIZER VACCINE 2020-06-15 00:00:00 Completed [facility] SARS-COV-2 COVID-19 PFIZER VACCINE 2020-06-15 00:00:00 Completed [facility] SARS-COV-2 COVID-19 PFIZER VACCINE 2020-06-15 00:00:00 Completed [facility] SARS-COV-2 COVID-19 PFIZER VACCINE Unknown Completed [facility] Vital Signs Vital Name Observation Time Observation Value Comments S ource Systolic blood pressure 2024-03-08 20:54:00 143 mm[Hg] [facility] Diastolic blood pressure 2024-03-08 20:54:00 76 mm[Hg] [facility] Heart rate 2024-03-08 20:53:00 59 /min [facility] Respiratory rate 2024-03-08 20:53:00 18 /min [facility] Body weight 2024-03-08 20:53:00 79.379 kg [facility] BMI 2024-03-08 20:53:00 33.07 kg/m2 [facility] Systolic blood pressure 2023-09-30 20:04:00 134 mm[Hg] [facility] Diastolic blood pressure 2023-09-30 20:04:00 63 mm[Hg] [facility] Heart rate 2023-09-30 20:04:00 66 /min [facility] Respiratory rate 2023-09-30 20:04:00 18 /min [facility] Body height 2023-09-30 20:04:00 154.9 cm [facility] Body weight 2023-09-30 20:04:00 81.647 kg [facility] BMI 2023-09-30 20:04:00 34.01 kg/m2 [facility] Systolic blood pressure 2022-09-13 13:21:00 130 mm[Hg] [facility] Diastolic blood pressure 2022-09-13 13:21:00 79 mm[Hg] [facility] Heart rate 2022-09-13 13:21:00 54 /[facility] Body height 2022-09-13 13:21:00 154.9 cm [facility] Body weight 2022-09-13 13:21:00 77.52 kg [facility] BMI 2022-09-13 13:21:00 32.29 kg/m2 [facility] Procedures Procedure Date / Time Performed Performing Clinicia n Source ASSIGNMENT OF BENEFITS 2022-09-13 12:59:03 Docto r Unassigned, [place] [facility] POCT URINALYSIS W/O SPECIFIC GRAVITY 2022-09-13 00:00:00 Win Prince [facility] Encounters Start Date/Time End Date/Time Encounter Type Admission Type Attending [facility] Care Facility Care Department Encounter ID Source 2024-03-11 00:00:00 2024-03-15 15:26:59 [facility] [id number] 134 [id number] [facility] 2024-03-08 14:45:00 2024-03-08 15:23:52 Outpatient R FERGUSON-TANJA S, WIN FERGUSON-TANJA S, WIN [facility] [id number] [facility] 2024-03-08 14:45:00 2024-03-08 15:23:52 Office Visit Ferguson-Tanja sKaterinaWin [facility] [id number] [facility] 2023-09-30 15:00:00 2023-09-30 15:26:34 Outpatient R FERGUSON-TANJA S, WIN FERGUSON-TANJA S, WIN [facility] [id number] [facility] 2023-09-30 15:00:00 2023-09-30 15:26:34 Office Visit Win Pink [facility] [id number] [facility] 2023-09-23 13:00:00 2023-09-23 13:00:00 Outpatient R FERGUSON-TANJA S, WIN FERGUSON-TANJA S, WIN [facility] [id number] [facility] 2023-09-19 15:30:00 2023-09-19 15:30:00 Outpatient R FERGUSON-TANJA S, WIN FERGUSON-TANJA S, WIN [facility] [id number] [facility] 2022-09-13 08:00:00 2022-09-13 08:46:20 Outpatient R DORA CHA [facility] [id number] [facility] 2022-09-13 08:00:00 2022-09-13 08:46:20 Office Visit Win Pink Vien Cam [facility] [id number] [facility] 2022-09-13 00:00:00 2022-09-13 00:00:00 Orders Only Doctor Unassigned, [place] [facility] [id number] [facility] Results Test Description Test Time Test Comments Results Result Co mments Source [facility]CIFIC [id number] 13:25:00* Test Item Value Reference Range Interpretation Comme nts POCT PH U (test code = 3254) 6 mg/dl 5-8 POCT U LEUK EST (test code = 3263) Negative Negative - Negative POCT U NIT (test code = 3262) negative Negative - Negati ve POCT U PROT (test code = 3259) Negative Negative - Negat harvey POCT U GLU (test code = 3256) Normal Negative - Negati ve POCT U KETONE (test code = 3258) Negative Negative - Neg ative POCT U BLD (test code = 3257) Negative Negative - Negati ve [facility]
[2024-03-19] MEDS ORDERED: ACETAMINOPHEN 500 MG TAB ONE (14:26)
[2024-03-19] MEDS ORDERED: IBUPROFEN 400 MG TAB ONE (14:26)
--- NOTE | 2024-03-19 14:39 | RAD REPORT ---
EXAM: US Extremity Nonvascular Complete HISTORY: right breast pain RIGHT COMPARISON: None TECHNIQUE: Sonographic grayscale and color flow imaging of the right breast including the region of i nterest as described by the patient. FINDINGS: Targeted sonographic evaluation of the lateral right breast, area of reported pain, reveals a few sma ll anechoic cysts. The largest is present approximately at 10:00 position measuring 5 mm in greatest dimension. A bilobed cyst is also present at 10:00 position collectively measuring up to 7 m m. A small cyst with minimal debris measures 2 mm, present at 8:00 position. The cysts demonstrate posterior acoustic enhancement and are overall of benign appearance. No suspicious masses, inflammato ry changes, or abnormal shadowing. IMPRESSION: Benign-appearing cysts in the area of pain in the lateral right breast.
[2024-03-19 15:01] LABS: Specific Gravity 1.012 (1.005-1.030); Sqamous Epithelial <5 /HPF (None Seen); Urine Bacteria None Seen /HPF (<20); Urine Bilirubin NEGATIVE (Negative); Urine Blood Negative (Negative); Urine Clarity Clear (Clear); Urine Color Light-Yellow (Yellow); Urine Culture Reflex Order NOT NEEDED; Urine Glucose NEGATIVE (Negative); Urine Ketones NEGATIVE (Negative); Urine Micro Reflex YN NO BILL MICROSCOPIC; Urine Nitrite NEGATIVE (Negative); Urine Protein NEGATIVE (Negative); Urine RBC <5 /HPF (None Seen); Urine Urobilinogen Normal (Normal); Urine WBC <5 /HPF (<5); Urine pH 6.5 (5.0-7.0)
[2024-03-19 15:02] LABS: Specific Gravity 1.012 (1.005-1.030)
--- NOTE | 2024-03-19 15:21 | EDPHYS ---
Physician Documentation [facility] Name: Berta Raman Age: 53 yrs Sex: Female : 1970 Arrival Date: 03/19/2024 Time: 13:41 Bed 5 Private MD: ED Physician Trenton Luo HPI: 03/19 14:04 This 53 yrs old Female presents to ER via Ambulatory with complaints of PAIN cp IN RIGHT BREAST. Historical: - Allergies: 13:49 No Known Allergies; cm10 - Home Meds: 13:49 None [Active]; cm10 - PMHx: 13:49 None; cm10 - PSHx: 13:49 Cholecystectomy; tubal ligation; Tumor removal abdomen and back; cm10 - Immunization history:: Adult Immunizations up to date. - Infectious Disease History:: Denies. - Social history:: Smoking status: Patient denies any tobacco usage or history of. ROS: 14:07 Skin: Positive for of the right breast, pain, Negative for discoloration, erythema, cp rash, swelling, 14:07 Constitutional: Negative for body aches, chills, fever, poor PO intake, cp 14:07 Respiratory: Negative for cough, shortness of breath, wheezing, Vital Signs: 13:48 BP 147 / 75; Pulse 70; Resp 16; Temp 98.5(O); Pulse Ox 100% on R/A; Weight 76.2 kg; cm10 Height 5 ft. 1 in. ; Pain 7/10; 15:30 BP 138 / 72; Pulse 72; Resp 16 S; Pulse Ox 100% on R/A; aa5 13:48 Body Mass Index 31.74 (76.20 kg, 154.94 cm) cm10 13:48 Pain Scale: Adult cm10 MDM: 13:50 Medical Screening Exam initiated cp 15:18 Data reviewed: vital signs, nurses notes, lab test result(s), radiologic studies, plain cp films, ultrasound, and as a result, I will discharge patient. I considered the following discharge prescriptions or medication management in the emergency department Medications were administered in the Emergency Department. See MAR. Independent interpretation of the following test(s) in the Emergency Department X-Ray: My interpretation is chest xray: no focal pneumonia, no infiltrates. 03/19 14:01 Order name: Urinalysis W/Microscopic; Complete Time: 15:02 cp 03/19 15:02 Interpretation: Reviewed. cp 03/19 14:01 Order name: Test, Urine; Complete Time: 15:02 cp 03/19 15:02 Interpretation: Reviewed. cp 03/19 14:02 Order name: XRAY Chest (1 view) cp 03/19 14:19 Order name: Extremity Nonvascular Complete; Complete Time: 14:54 EDMS 03/19 14:54 Interpretation: Report reviewed. cp Administered Medications: 14:37 Drug: Acetaminophen PO 1000 mg PO once Route: PO; aa5 15:55 Follow up: Response: No adverse reaction aa5 14:37 Drug: Ibuprofen PO 800 mg PO once; if test negative Route: PO; aa5 15:55 Follow up: Response: No adverse reaction aa5 Disposition Summary: 03/19/24 15:21 Discharge Ordered Notes: Location: Home cp Problem: new cp Symptoms: have improved cp Condition: Stable cp Diagnosis - Disorder of breast, unspecified - right breast pain cp Followup: cp - With: Private Physician - When: 2 - 3 days - Reason: Recheck today's complaints Discharge Instructions: - Discharge Summary Sheet cp - Musculoskeletal Pain cp Forms: - Medication Reconciliation Form cp - Antibiotic Education cp - Prescription Opioid Use cp - Patient Portal Instructions cp - Leadership Thank You Letter cp Prescriptions: - Anaprox DS 550 mg Oral Tablet - take 1 tablet ORAL route every 12 hours As needed; 20 tablet; Refills: 0, cp Product Selection Permitted Signatures: Dispatcher [employer] Cee Chou RN RN aa5 Aba Alba PA PA cp Martinez, Clarissa RN RN cm10 Corrections: (The following items were deleted from the chart) 14:02 14:02 Urinalysis W/Microscopic+U.LAB.BRZ ordered. EDMS EDMS 14:02 14:02 Test, Urine+UC.LAB.BRZ ordered. EDMS EDMS 14:02 14:02 Extrmty Nonvasular Limited+US.RAD.BRZ ordered. EDMS EDMS
--- NOTE | 2024-03-19 15:21 | ER ---
Nurse's Notes [facility] Name: Berta Raman Age: 53 yrs Sex: Female : 1970 Arrival Date: 03/19/2024 Time: 13:41 Bed 5 Private MD: Diagnosis: Disorder of breast, unspecified-right breast pain Presentation: 03/19 13:48 Chief complaint: Patient states: pain to right breast onset today. pt states that the cm10 pain is worse when she bends over and that her breast is tender to the touch. pt describes the pain as a sharp pain that starts at her nipple and radiates to her side. Coronavirus screen: Client denies travel out of the [place] in the last 14 days. Ebola Screen: Patient denies travel to an Ebola-affected area in the 21 days before illness onset. No symptoms or risks identified at this time. Initial Sepsis Screen: Does the patient meet any 2 criteria? No. Patient's initial sepsis screen is negative. Does the patient have a suspected source of infection? No. Patient's initial sepsis screen is negative. Risk Assessment: Do you want to hurt yourself or someone else? Patient reports no desire to harm self or others. Onset of symptoms was March 19, 2024. 13:48 Method Of Arrival: Ambulatory cm10 13:48 Acuity: ILIA 4 cm10 Triage Assessment: 13:49 General: Appears in no apparent distress. uncomfortable, Behavior is calm, cooperative. cm10 Pain: Complains of pain in right breast Pain radiates to right lateral anterior chest Pain currently is 7 out of 10 on a pain scale. Quality of pain is described as stabbing. Neuro: No deficits noted. Level of Consciousness is awake, alert, obeys commands, Oriented to person, place, time, situation, Appropriate for age. Respiratory: No deficits noted. Airway is patent Respiratory effort is even, unlabored, Respiratory pattern is regular, symmetrical. Historical: - Allergies: 13:49 No Known Allergies; cm10 - Home Meds: 13:49 None [Active]; cm10 - PMHx: 13:49 None; cm10 - PSHx: 13:49 Cholecystectomy; tubal ligation; Tumor removal abdomen and back; cm10 - Immunization history:: Adult Immunizations up to date. - Infectious Disease History:: Denies. - Social history:: Smoking status: Patient denies any tobacco usage or history of. Screenin:01 [facility] ED Fall Risk Assessment (Adult) History of falling in the last 3 months, hb including since admission No falls in past 3 months (0 pts) Confusion or Disorientation No (0 pts) Intoxicated or Sedated No (0 pts) Impaired Gait No (0 pts) Mobility Assist Device Used No (0 pt) Altered Elimination No (0 pt) Score/Fall Risk Level 0 - 2 = Low Risk Oriented to surroundings, Maintained a safe environment, Educated pt \T\ family on fall prevention, incl call for assistance when getting out of bed. Abuse screen: Denies threats or abuse. Denies injuries from another. Nutritional screening: No deficits noted. Tuberculosis screening: No symptoms or risk factors identified. Assessment: 14:01 General: Appears in no apparent distress. Behavior is calm, cooperative. Neuro: Level hb of Consciousness is awake, alert, obeys commands, Oriented to person, place, time, situation. Cardiovascular: Patient's skin is warm and dry. Respiratory: Respiratory effort is even, unlabored, Respiratory pattern is regular, symmetrical. GI: No signs and/or symptoms were reported involving the gastrointestinal system. : No signs and/or symptoms were reported regarding the genitourinary system. EENT: No signs and/or symptoms were reported regarding the EENT system. Derm: Skin is pink, warm \T\ dry. Musculoskeletal: Reports pain in right lateral breast. 14:30 General: Appears comfortable, Behavior is calm, cooperative. Pain: Complains of pain in aa5 right breast Pain currently is 7 out of 10 on a pain scale. Quality of pain is described as sharp, Is intermittent. Neuro: Level of Consciousness is awake, alert, obeys commands, Oriented to person, place, time, situation. Cardiovascular: Patient's skin is warm and dry. Respiratory: Airway is patent Respiratory effort is even, unlabored, Respiratory pattern is regular, symmetrical. GI: No signs and/or symptoms were reported involving the gastrointestinal system. : No signs and/or symptoms were reported regarding the genitourinary system. EENT: No signs and/or symptoms were reported regarding the EENT system. Derm: Skin is pink, warm \T\ dry. No redness or swelling noted to right breast. Musculoskeletal: Range of motion: intact in all extremities. 15:53 Reassessment: Patient is alert, oriented x 3, equal unlabored respirations, skin aa5 warm/dry/pink. Vital Signs: 13:48 BP 147 / 75; Pulse 70; Resp 16; Temp 98.5(O); Pulse Ox 100% on R/A; Weight 76.2 kg; cm10 Height 5 ft. 1 in. ; Pain 7/10; 15:30 BP 138 / 72; Pulse 72; Resp 16 S; Pulse Ox 100% on R/A; aa5 13:48 Body Mass Index 31.74 (76.20 kg, 154.94 cm) cm10 13:48 Pain Scale: Adult cm10 ED Course: 13:44 Patient arrived in ED. sj2 13:45 Aba Alba PA is PHCP. cp 13:45 Trenton Luo MD is Attending Physician. cp 13:49 Triage completed. cm10 13:49 Arm band placed on right wrist. Patient placed in an exam room, on a stretcher. cm10 14:01 Patient has correct armband on for positive identification. Provided Education on: use hb of call light, tests, result times. 14:01 Assisted provider with: Breast Exam. hb 14:13 Cee Sabillon, RN is Primary Nurse. aa5 14:19 Extremity Nonvascular Complete In Process Unspecified. EDMS 14:41 XRAY Chest (1 view) In Process Unspecified. EDMS 15:53 Patient did not have IV access during this emergency room visit. aa5 Administered Medications: 14:37 Drug: Acetaminophen PO 1000 mg PO once Route: PO; aa5 15:55 Follow up: Response: No adverse reaction aa5 14:37 Drug: Ibuprofen PO 800 mg PO once; if test negative Route: PO; aa5 15:55 Follow up: Response: No adverse reaction aa5 Medication: 14:01 VIS not applicable for this client. hb Outcome: 15:21 Discharge ordered by . cp 15:53 Discharged to home ambulatory, aa5 15:53 Condition: stable 15:53 Discharge instructions given to patient, Instructed on discharge instructions, follow up and referral plans. medication usage, Demonstrated understanding of instructions, follow-up care, medications, Prescriptions given X 1, 15:56 Patient left the ED. aa5 Signatures: Dispatcher [employer] EDOR Cee Sabillon, RN RN aa5 Aba Alba PA PA cp Baxter, Heather, RN RN hb Lola Delaney RN RN cm10 Brayan Perez [facility]
[2024-03-19 16:02] VITALS: BP 147/75; TEMP 98.5; O2SAT 100
--- NOTE | 2024-03-19 16:10 | RAD REPORT ---
EXAMINATION: ONE VIEW CHEST XR CLINICAL INDICATION: Female, 53 years old.,right breast pain TECHNIQUE: Frontal chest projection is submitted. Examination is limited by patient positioning and t echnique. COMPARISON: 07/26/2020 FINDINGS: The lungs are well inflated and clear. No pneumothorax or sizable effusion. The heart is normal in s ize. Mediastinal contours are unremarkable. IMPRESSION: No acute intrathoracic abnormalities.
== END 2024-03-19 15:56 | disposition home or self-care (01) ==
LOC: ER 13:41
DX: N64.4 Mastodynia (principal)
CPT/HCPCS: 71045; 76881; 81001; 81025; 99283